=== PATIENT | male | born 1975 | race American Indian/Alaskan Native ===

== ENCOUNTER 2017-07-10 21:10 | Emergency (ER) | payer MEDICAID, OTHER ==
--- NOTE | 2017-07-10 21:20 | EDM.PDOC ---
ED HPI GENERAL MEDICAL PROBLEM - General Chief Complaint: ENT Problem Stated Complaint: TOOTHACHE Time Seen by Provider: 07/10/17 21:20 Source of Information: Reports: Patient - History of Present Illness INITIAL COMMENTS - FREE TEXT/NARRATIVE: Patient is here for evaluation of dental pain on the upper right. He states that he does have a chipped tooth that was infected. He did see his dentist on Saturday to set up extraction day for 07/24/2017. He is currently on Augmentin to treat the infection. Patient is here as his dentist told him to go to the emergency room every day for pain management. Right Upper Oral/Mouth Pain Score (Numeric/FACES): 9 - Related Data Allergies Allergy/AdvReac Type Severity Reaction Status Date / Time No Known Allergies Allergy Verified 07/10/17 21:23 Home Meds: Home Meds Aspirin [Low Dose Aspirin EC] 81 mg PO DAILY 07/10/17 [History] Empagliflozin [Jardiance] 25 mg PO DAILY 07/10/17 [History] Gabapentin [Neurontin] 300 mg PO BID 07/10/17 [History] Lisinopril [Prinivil] 10 mg PO DAILY 07/10/17 [History] metFORMIN HCl [Metformin HCl] 1 tab PO BID 07/10/17 [History] ED ROS ENT - Review of Systems Review Of Systems: See Below Constitutional: Denies: Fever, Chills, Malaise, Weakness, Decreased Appetite HEENT: Reports: Other Respiratory: Reports: No Symptoms (Dental pain) Cardiovascular: Reports: No Symptoms ED EXAM, ENT - Physical Exam Exam: See Below General Appearance: Alert, WD/WN, Mild Distress Ears: Normal External Exam, Normal Canal, Normal TMs Nose: Normal Inspection, Normal Mucousa Mouth/Throat: Normal Inspection, Normal Gums, Other (Poor dentition with several missing teeth and others with caries. Tooth #3 broken and it does appear this extends quite deep.) Head: Atraumatic, Normocephalic Neck: Lymphadenopathy (R) (Submandibular). No: Lymphadenopathy (L) Respiratory/Chest: No Respiratory Distress, Lungs Clear, Normal Breath Sounds Cardiovascular: Normal Peripheral Pulses, Regular Rate, Rhythm, No Murmur Neurological: Alert, Oriented Psychiatric: Normal Affect, Normal Mood Course - Vital Signs Last Recorded V/S: Last Vital Signs Temp 97.6 F 07/10/17 21:17 Pulse 82 03/21/18 21:17 Resp 16 07/10/17 21:17 BP 126/91 H 07/10/17 21:17 Pulse Ox - Orders/Labs/Meds Meds: Medications Discontinued Medications Generic Name Dose Route Start Last Admin Trade Name Ilia PRN Reason Stop Dose Admin Ketorolac Tromethamine 30 mg 07/10/17 21:44 07/10/17 21:49 Toradol IM 07/10/17 21:45 30 mg ONETIME ONE Administration - Re-Assessments/Exams Free Text/Narrative Re-Assessment/Exam: Patient does have broken tooth, there is no surrounding erythema or swelling. The eroded part of the tooth does extend fairly deep. I did discuss with patient that we do have a department policy whereas narcotic pain medication is not prescribed for dental pain. Patient cannot take oral NSAIDs due to previous ulcers. Options were discussed at length, will give patient Toradol injection and a prescription for quad cane Tips. Could also try the OTC dental filler for protection in the mean time. Ultimately patient will need to follow-up with his dentist for further treatment. 07/10/17 21:48 07/10/17 22:02 Departure - Departure Time of Disposition: 22:03 Disposition: Home, Self-Care 01 Condition: Good Clinical Impression: Poor dentition, Pain, dental Broken tooth Qualifiers: Encounter type: initial encounter - Discharge Information Referrals: PCP,None [Primary Care Provider] - Forms: ED Department Discharge Additional Instructions: You were evaluated in the emergency room for dental pain. It is our policy that we will not prescribe narcotic pain medications as they are not indicated for dental pain. I recommend that you continue on your antibiotic daily. Continue with Tylenol. You may try a OTC dental filler to keep the air and cold from aggravating this. Can use topical Orajel or use the prescription for quad cane Tips that you were provided. These need to be purchased from [facility] pharmacy. Follow-up with your dentist or return to ER if needed.
[2017-07-10] MEDS ORDERED: Ketorolac 30 MG/ML SDV IM ONE (21:44)
== END 2017-07-10 22:08 | disposition home or self-care (01) ==
LOC: JD.ED 21:10
DX: K03.81 Cracked tooth (principal); K08.89 Other specified disorders of teeth and supporting structures; Z79.899 Other long term (current) drug therapy; Z79.82 Long term (current) use of aspirin
CPT/HCPCS: 96372; 99283; J1885